=== PATIENT | female | born 1970 | race Caucasian/White ===

== ENCOUNTER 2018-11-23 18:24 | Emergency (ER) | payer OTHER ==
[2018-11-23] MEDS ORDERED: Sodium Chloride 0.9% 2.5 ML Syringe FLUSH PRN (18:33)
[2018-11-23] MEDS ORDERED: Sodium Chloride 0.9% 10 ML Syringe FLUSH PRN (18:33)
--- NOTE | 2018-11-23 19:05 | EDM.PDOC ---
ED HPI GENERAL MEDICAL PROBLEM - General Chief Complaint: Cardiovascular Problem Stated Complaint: PT HAS HIGH BLOOD PRESSURE Time Seen by Provider: 11/23/18 19:01 - History of Present Illness INITIAL COMMENTS - FREE TEXT/NARRATIVE: HISTORY AND PHYSICAL: History of present illness: The patient is a 48-year-old female was on medications for hypothyroidism , who has never been diagnosed with hypertension but says that her blood pressure over the last several months has been running on the "high side", who presents to the ED today with complaints of frontal headache then diffuse headache for the last 2 days and then nausea today which concerned her. The patient says that about 2 months ago she had an elbow injury and they told her that her blood pressure was borderline with a systolic of 140 and she did not follow-up in the clinic. She has since made an appointment with Dr. Carl at [facility] but she says that she started having a headache gradually in the frontal area and then spreading throughout her head on Wednesday and over the last 2-1/2 days it has been constant and she has not been able to even rest. She denies any recent trauma no fevers no chills no sinus issues sinus drainage chest pain shortness of breath abdominal pain. She's not had vomiting or diarrhea and no neck or back pain. She only had the nausea this evening which is what concerned her. She has only tried one dose of ibuprofen 800 mg yesterday morning and then today she took some aspirin and a half of the left over hydrocodone and it did not help so she came here for evaluation. She says that over the last 2-1/2 days she's been following her blood pressure and the systolic has been 160s. Review of systems: As per history of present illness and below otherwise all systems reviewed and negative. Past medical history: As per history of present illness and as reviewed below otherwise noncontributory. Surgical history: As per history of present illness and as reviewed below otherwise noncontributory. Social history: No reported history of drug or alcohol abuse. Family history: As per history of present illness and as reviewed below otherwise noncontributory. Physical exam: General: Well-developed well-nourished female who is nontoxic and vital signs are noted by me. HEENT: Atraumatic, normocephalic, there is no scalp tenderness sinus tenderness and no posterior neck tenderness,, negative for conjunctival pallor or scleral icterus, mucous membranes moist, throat clear, neck supple, nontender, trachea midline. There is no cervical adenopathy or nuchal rigidity Lungs: Clear to auscultation, breath sounds equal bilaterally, chest nontender. Heart: S1S2, regular rate and rhythm no overt murmurs Abdomen: Soft, nondistended, nontender. Negative for masses or hepatosplenomegaly. Negative for costovertebral tenderness. Pelvis: Stable nontender. Genitourinary: Deferred. Rectal: Deferred. Extremities: Atraumatic, negative for cords or calf pain. Neurovascular unremarkable. No pedal edema Neuro: Awake, alert, oriented. Cranial nerves II through XII unremarkable. Cerebellum unremarkable. Motor and sensory unremarkable throughout. Exam nonfocal. Diagnostics: EKG CBC CMP UA CT scan of the head urine culture Therapeutics: IV O2 monitor IV fluids Toradol Zofran Solu-Medrol I discussed with the patient that her blood pressure is not significant from an ED perspective to emergently lower it and it would need to be done more gradually by Dr. Carl in the clinic. I told her that we would investigate other causes for her headache as well as metabolic issues and attempt to help her with pain management. She states understanding. Patient says that her nausea is gone and her headache is improving but is still there. We discussed symptomatic care at home and follow-up in the clinic and she states understanding Impression: Headache with mildly elevated blood pressure improving, incidental UTI Definitive disposition and diagnosis as appropriate pending reevaluation and review of above. Head Pain Score (Numeric/FACES): 10 - Related Data Allergies Allergy/AdvReac Type Severity Reaction Status Date / Time codeine Allergy Itching Verified 11/23/18 18:26 Home Meds: Home Meds . [No Known Home Meds] 11/23/18 [History] Levothyroxine [Synthroid] 88 mcg PO ACBREAKFAST 11/23/18 [History] Past Medical History Endocrine/Metabolic History: Reports: Hypothyroidism - Infectious Disease History Infectious Disease History: Reports: Chicken Pox - Past Surgical History HEENT Surgical History: Reports: Tonsillectomy Social & Family History - Family History Family Medical History: Noncontributory - Tobacco Use Smoking Status *Q: Never Smoker Second Hand Smoke Exposure: No - Caffeine Use Caffeine Use: Reports: Coffee - Recreational Drug Use Recreational Drug Use: No ED ROS GENERAL - Review of Systems Review Of Systems: ROS reveals no pertinent complaints other than HPI. ED EXAM, GENERAL - Physical Exam Exam: See Below (See dictation) Course - Vital Signs Last Recorded V/S: Last Vital Signs Temp 36.7 C 11/23/18 18:27 Pulse 55 L 11/23/18 20:05 Resp 15 11/23/18 20:05 BP 135/81 11/23/18 20:05 Pulse Ox 99 11/23/18 20:05 - Orders/Labs/Meds Orders: Active Orders 24 hr Category Date Time Status EKG Documentation Completion [RC] STAT Care 11/23/18 18:33 Active CULTURE URINE [RM] Stat Lab 11/23/18 20:16 Ordered Sodium Chloride 0.9% [Saline Flush] Med 11/23/18 18:33 Active 10 ml FLUSH ASDIRECTED PRN Sodium Chloride 0.9% [Saline Flush] Med 11/23/18 18:33 Active 2.5 ml FLUSH ASDIRECTED PRN Saline Lock Insert [OM.PC] Stat Oth 11/23/18 18:33 Ordered Medication Orders Sodium Chloride (Saline Flush) 10 ml FLUSH ASDIRECTED PRN PRN Reason: Keep Vein Open Sodium Chloride (Saline Flush) 2.5 ml FLUSH ASDIRECTED PRN PRN Reason: Keep Vein Open Labs: Laboratory Tests 11/23/18 11/23/18 11/23/18 Range/Units 18:48 18:48 19:05 WBC 5.18 (4.0-11.0) K/uL RBC 4.25 L (4.30-5.90) M/uL Hgb 14.2 (12.0-16.0) g/dL Hct 41.3 (36.0-46.0) % MCV 97.2 (80.0-98.0) fL MCH 33.4 H (27.0-32.0) pg MCHC 34.4 (31.0-37.0) g/dL RDW Std Deviation 46.1 (28.0-62.0) fl RDW Coeff of Nasra 13 (11.0-15.0) % Plt Count 287 (150-400) K/uL MPV 10.40 (7.40-12.00) fL Neut % (Auto) 53.0 (48.0-80.0) % Lymph % (Auto) 26.3 (16.0-40.0) % [place] % (Auto) 10.6 (0.0-15.0) % Eos % (Auto) 9.7 H (0.0-7.0) % Baso % (Auto) 0.4 (0.0-1.5) % Neut # (Auto) 2.8 (1.4-5.7) K/uL Lymph # (Auto) 1.4 (0.6-2.4) K/uL [place] # (Auto) 0.6 (0.0-0.8) K/uL Eos # (Auto) 0.5 (0.0-0.7) K/uL Baso # (Auto) 0.0 (0.0-0.1) K/uL Nucleated RBC % 0.0 /100WBC Nucleated RBCs # 0 K/uL Sodium 140 (136-145) mmol/L Potassium 4.0 (3.5-5.1) mmol/L Chloride 104 (98-107) mmol/L Carbon Dioxide 26.4 (21.0-32.0) mmol/L BUN 9 (7.0-18.0) mg/dL Creatinine 0.8 (0.6-1.0) mg/dL Est Cr Clr Drug Dosing 69.59 mL/min Estimated GFR (MDRD) > 60.0 ml/min Glucose 89 (74-106) mg/dL Calcium 9.3 (8.5-10.1) mg/dL Total Bilirubin 0.4 (0.2-1.0) mg/dL AST 25 (15-37) IU/L ALT 32 (14-63) IU/L Alkaline Phosphatase 71 (46-116) U/L Total Protein 7.4 (6.4-8.2) g/dL Albumin 4.3 (3.4-5.0) g/dL Globulin 3.1 (2.6-4.0) g/dL Albumin/Globulin Ratio 1.4 (0.9-1.6) Urine Color YELLOW Urine Appearance SLT CLOUDY Urine pH 5.5 (5.0-8.0) Ur Specific [place] <= 1.005 (1.001-1.035) Urine Protein NEGATIVE (NEGATIVE) mg/dL Urine Glucose (UA) NEGATIVE (NEGATIVE) mg/dL Urine Ketones NEGATIVE (NEGATIVE) mg/dL Urine Occult Blood NEGATIVE (NEGATIVE) Urine Nitrite NEGATIVE (NEGATIVE) Urine Bilirubin NEGATIVE (NEGATIVE) Urine Urobilinogen 0.2 (<2.0) EU/dL Ur Leukocyte Esterase MODERATE H (NEGATIVE) Urine RBC 0-2 (0-2/HPF) Urine WBC 10-20 (0-5/HPF) Ur Epithelial Cells FEW (NONE-FEW) Urine Bacteria FEW (NEGATIVE) Meds: Medications Generic Name Dose Route Start Last Admin Trade Name Freq PRN Reason Stop Dose Admin Sodium Chloride 10 ml 11/23/18 18:33 Saline Flush FLUSH ASDIRECTED PRN Keep Vein Open Sodium Chloride 2.5 ml 11/23/18 18:33 Saline Flush FLUSH ASDIRECTED PRN Keep Vein Open Discontinued Medications Generic Name Dose Route Start Last Admin Trade Name Freq PRN Reason Stop Dose Admin Diphenhydramine HCl 25 mg 11/23/18 19:11 11/23/18 19:42 Benadryl IVPUSH 11/23/18 19:12 25 mg ONETIME ONE Administration Sodium Chloride 1,000 mls @ 999 mls/hr 11/23/18 19:11 11/23/18 19:37 Normal Saline IV 11/23/18 20:11 999 mls/hr STAT ONE Administration Ketorolac Tromethamine 30 mg 11/23/18 19:11 11/23/18 19:39 Toradol IVPUSH 11/23/18 19:12 30 mg ONETIME ONE Administration Methylprednisolone Sodium Succinate 125 mg 11/23/18 19:11 11/23/18 19:40 Solu-Medrol IVPUSH 11/23/18 19:12 125 mg ONETIME ONE Administration Ondansetron HCl 4 mg 11/23/18 19:11 11/23/18 19:37 Zofran IVPUSH 11/23/18 19:12 4 mg ONETIME ONE Administration Departure - Departure Time of Disposition: 20:20 Disposition: Home, Self-Care 01 Condition: Good Clinical Impression: Headache Qualifiers: Headache type: unspecified Headache chronicity pattern: unspecified pattern Intractability: not intractable Qualified Code(s): R51 - Headache Referrals: Bennett Carl MD [Primary Care Provider] - Forms: ED Department Discharge Additional Instructions: The following information is given to patients seen in the emergency department who are being discharged to home. This information is to outline your options for follow-up care. We provide all patients seen in our emergency department with a follow-up referral. The need for follow-up, as well as the timing and circumstances, are variable depending upon the specifics of your emergency department visit. If you don't have a primary care physician on staff, we will provide you with a referral. We always advise you to contact your personal physician following an emergency department visit to inform them of the circumstance of the visit and for follow-up with them and/or the need for any referrals to a consulting specialist. The emergency department will also refer you to a specialist when appropriate. This referral assures that you have the opportunity for followup care with a specialist. All of these measure are taken in an effort to provide you with optimal care, which includes your followup. Under all circumstances we always encourage you to contact your private physician who remains a resource for coordinating your care. When calling for followup care, please make the office aware that this follow-up is from your recent emergency room visit. If for any reason you are refused follow-up, please contact the [facility] emergency department at and ask to speak to the emergency department charge nurse. [address] [place] [address] Push hydration rest and use [id number] ibuprofen 600 mg every 6-8 hours and Tylenol as you choose. He'll did prescribe some tramadol that you can also try for sleep but only take when you're home as it may make you dizzy or lightheaded. Keep your appointment at [facility] with Dr. Carl and contact them tomorrow to see if you can move the appointment to an earlier time. Return to ER as needed and as discussed - My Orders Last 24 Hours: My Active Orders 11/23/18 20:16 CULTURE URINE [RM] Stat - Assessment/Plan Last 24 Hours: My Active Orders 11/23/18 20:16 CULTURE URINE [RM] Stat
[2018-11-23] MEDS ORDERED: Ketorolac 30 MG/ML SDV IVPUSH ONE (19:11)
[2018-11-23] MEDS ORDERED: methylPREDNISolone Sodium Succinate 125 MG/2 ML SDV IVPUSH ONE (19:11)
[2018-11-23] MEDS ORDERED: diphenhydrAMINE 50 MG/ML SDV IVPUSH ONE (19:11)
[2018-11-23] MEDS ORDERED: Ondansetron 4 MG/2 ML SDV IVPUSH ONE (19:11)
[2018-11-23] MEDS ORDERED: Sodium Chloride 0.9% 1,000 ML IV ONE (19:11)
[2018-11-23 19:25] LABS: CHLORIDE,CL 104 mmol/L (98-107); SODIUM,NA 140 mmol/L (136-145)
--- NOTE | 2018-11-23 19:58 | CT ---
INDICATION: Headache. Hypertension. COMPARISON: None available. TECHNIQUE: CT examination of the head was performed with 3 mm thick axial sections without intravenous contrast. Images were obtained from the vertex of the skull through the skull base, and I examined the images with the brain and bone windows. Please note that all CT scans at this facility use dose modulation, iterative reconstruction, and/or weight-based dosing when appropriate to reduce radiation dose to as low as reasonably achievable. FINDINGS: : The brain is normal in appearance for the patient`s age on today`s study, with no sign of mass lesion, mass effect, hemorrhage, or edema. The ventricles and sulci are normal in appearance for the patient`s age. The visualized portions of the orbits are normal in appearance. The visualized portions of the paranasal sinuses and mastoids are clear. The osseous structures are normal in their appearance with no sign of abnormality in the skull base or calvarium. IMPRESSION: Normal noncontrast CT of the head for the patient`s age. Nothing seen to correlate with history of headache. Please note that all CT scans at this facility use dose modulation, iterative reconstruction, and/or weight-based dosing when appropriate to reduce radiation dose to as low as reasonably achievable. Dictated by Jama Avila MD @ Nov 23 2018 7:53PM Signed by Dr. Jama Avila @ Nov 23 2018 7:56PM
== END 2018-11-23 20:36 | disposition home or self-care (01) ==
LOC: MW.ED 18:24
DX: R51 Headache (principal); R03.0 Elevated blood-pressure reading, without diagnosis of hypertension; N39.0 Urinary tract infection, site not specified; E03.9 Hypothyroidism, unspecified; Z88.5 Allergy status to narcotic agent; Z79.890 Hormone replacement therapy
CPT/HCPCS: 70450; 80053; 81001; 85025; 87086; 93005; 96361; 96374; 96375; 99284; J1200; J1885; J2405; J2930; J7040

== ENCOUNTER 2020-06-12 13:07 | Emergency (ER) | payer OTHER ==
--- NOTE | 2020-06-12 14:00 | EDM.PDOC ---
ED HPI GENERAL MEDICAL PROBLEM - General Chief Complaint: Abdominal Pain Stated Complaint: STOMACH PAIN, BLOOD IN STOOL Time Seen by Provider: 06/12/20 13:55 Source of Information: Reports: Patient History Limitations: Reports: No Limitations - History of Present Illness INITIAL COMMENTS - FREE TEXT/NARRATIVE: 49-year-old female with history of celiac disease presents with abdominal pain this morning. Abdominal pain is described as aching sensation rated 4/10, periumbilical, waxes and wanes since this morning, accommodated by 3 episodes of mucus she stool with bright red blood and specks of melena. She denies feeling lightheaded, dizziness, fever, chills, nausea, vomiting, chest pain, shortness of breath. ROS: A 10-point review of systems, other than pertinent positives and negatives as stated per HPI, is otherwise negative Past medical history: No additional pertinent history Past Surgical history: No additional pertinent history Social history: No additional pertinent history Family history: No additional pertinent history PHYSICAL EXAM General: AOx4, GCS = 15, No distress HEENT: dry mucous membrane Neck: supple, no meningismus, no Kernig or Brudzinski Cardiac: S1S2 RRR Respiratory: CTAB, no crackles or rales, no wheezing Abdomen: Soft, nontender, no rebound or guarding, nondistended, no pulsatile mass. Back: nontender Musculoskeletal: NVI distally, no deformity Neuro: No focal deficits, CN 2 - 12 WNL. gut Pain Score (Numeric/FACES): 4 - Related Data Allergies Allergy/AdvReac Type Severity Reaction Status Date / Time codeine Allergy Itching Verified 06/12/20 14:03 Home Meds: Home Meds Levothyroxine [Synthroid] 100 mcg PO ACBREAKFAST 11/23/18 [History] Dicyclomine [Bentyl] 10 mg PO QIDACANDBED #12 cap 06/12/20 [Rx] Omeprazole Magnesium [Prilosec Otc] 20 mg PO BID #30 tablet.dr 06/12/20 [Rx] estradioL [Estradiol] 1 mg PO DAILY 06/12/20 [History] Past Medical History Endocrine/Metabolic History: Reports: Hypothyroidism - Infectious Disease History Infectious Disease History: Reports: Chicken Pox - Past Surgical History HEENT Surgical History: Reports: Tonsillectomy Social & Family History - Family History Family Medical History: No Pertinent Family History - Caffeine Use Caffeine Use: Reports: Coffee ED ROS GENERAL - Review of Systems Review Of Systems: See Below (see dictation) ED EXAM, GENERAL - Physical Exam Exam: See Below (see dictation) Course - Vital Signs Last Recorded V/S: Last Vital Signs Temp 97.5 F 06/12/20 14:00 Pulse 66 06/12/20 14:00 Resp 16 06/12/20 14:00 BP 155/102 H 06/12/20 14:00 Pulse Ox 98 06/12/20 14:00 - Orders/Labs/Meds Labs: Laboratory Tests 06/12/20 06/12/20 06/12/20 Range/Units 14:17 14:24 14:24 WBC 5.86 (4.0-11.0) K/uL RBC 4.14 L (4.30-5.90) M/uL Hgb 13.5 (12.0-16.0) g/dL Hct 40.3 (36.0-46.0) % MCV 97.3 (80.0-98.0) fL MCH 32.6 H (27.0-32.0) pg MCHC 33.5 (31.0-37.0) g/dL RDW Std Deviation 44.2 (28.0-62.0) fl RDW Coeff of Nasra 13 (11.0-15.0) % Plt Count 281 (150-400) K/uL MPV 10.40 (7.40-12.00) fL Neut % (Auto) 72.2 (48.0-80.0) % Lymph % (Auto) 20.1 (16.0-40.0) % [place] % (Auto) 5.8 (0.0-15.0) % Eos % (Auto) 1.4 (0.0-7.0) % Baso % (Auto) 0.5 (0.0-1.5) % Neut # (Auto) 4.2 (1.4-5.7) K/uL Lymph # (Auto) 1.2 (0.6-2.4) K/uL [place] # (Auto) 0.3 (0.0-0.8) K/uL Eos # (Auto) 0.1 (0.0-0.7) K/uL Baso # (Auto) 0.0 (0.0-0.1) K/uL Nucleated RBC % 0.0 /100WBC Nucleated RBCs # 0 K/uL INR APTT (18.6-31.3) SEC Lactate (0.20-2.00) mmol/L Sodium 138 (136-145) mmol/L Potassium 4.2 (3.5-5.1) mmol/L Chloride 101 (98-107) mmol/L Carbon Dioxide 26.9 (21.0-32.0) mmol/L BUN 11 (7.0-18.0) mg/dL Creatinine 0.8 (0.6-1.0) mg/dL Est Cr Clr Drug Dosing 65.80 mL/min Estimated GFR (MDRD) > 60.0 ml/min Glucose 89 (74-106) mg/dL Calcium 8.6 (8.5-10.1) mg/dL Total Bilirubin 0.3 (0.2-1.0) mg/dL AST 27 (15-37) IU/L ALT 33 (14-63) IU/L Alkaline Phosphatase 63 (46-116) U/L Total Protein 7.1 (6.4-8.2) g/dL Albumin 3.8 (3.4-5.0) g/dL Globulin 3.3 (2.6-4.0) g/dL Albumin/Globulin Ratio 1.2 (0.9-1.6) Lipase 123 (73-393) U/L HCG, Qual (NEG) Urine Color YELLOW Urine Appearance CLEAR Urine pH 7.0 (5.0-8.0) Ur Specific [place] 1.010 (1.001-1.035) Urine Protein NEGATIVE (NEGATIVE) mg/dL Urine Glucose (UA) NEGATIVE (NEGATIVE) mg/dL Urine Ketones NEGATIVE (NEGATIVE) mg/dL Urine Occult Blood NEGATIVE (NEGATIVE) Urine Nitrite NEGATIVE (NEGATIVE) Urine Bilirubin NEGATIVE (NEGATIVE) Urine Urobilinogen 0.2 (<2.0) EU/dL Ur Leukocyte Esterase NEGATIVE (NEGATIVE) 06/12/20 06/12/20 06/12/20 Range/Units 14:24 14:24 14:24 WBC (4.0-11.0) K/uL RBC (4.30-5.90) M/uL Hgb (12.0-16.0) g/dL Hct (36.0-46.0) % MCV (80.0-98.0) fL MCH (27.0-32.0) pg MCHC (31.0-37.0) g/dL RDW Std Deviation (28.0-62.0) fl RDW Coeff of [place] (11.0-15.0) % Plt Count (150-400) K/uL MPV (7.40-12.00) fL Neut % (Auto) (48.0-80.0) % Lymph % (Auto) (16.0-40.0) % [place] % (Auto) (0.0-15.0) % Eos % (Auto) (0.0-7.0) % Baso % (Auto) (0.0-1.5) % Neut # (Auto) (1.4-5.7) K/uL Lymph # (Auto) (0.6-2.4) K/uL [place] # (Auto) (0.0-0.8) K/uL Eos # (Auto) (0.0-0.7) K/uL Baso # (Auto) (0.0-0.1) K/uL Nucleated RBC % /100WBC Nucleated RBCs # K/uL INR 0.97 APTT 22.4 (18.6-31.3) SEC Lactate 0.5 (0.20-2.00) mmol/L Sodium (136-145) mmol/L Potassium (3.5-5.1) mmol/L Chloride (98-107) mmol/L Carbon Dioxide (21.0-32.0) mmol/L BUN (7.0-18.0) mg/dL Creatinine (0.6-1.0) mg/dL Est Cr Clr Drug Dosing mL/min Estimated GFR (MDRD) ml/min Glucose (74-106) mg/dL Calcium (8.5-10.1) mg/dL Total Bilirubin (0.2-1.0) mg/dL AST (15-37) IU/L ALT (14-63) IU/L Alkaline Phosphatase (46-116) U/L Total Protein (6.4-8.2) g/dL Albumin (3.4-5.0) g/dL Globulin (2.6-4.0) g/dL Albumin/Globulin Ratio (0.9-1.6) Lipase (73-393) U/L HCG, Qual NEGATIVE (NEG) Urine Color Urine Appearance Urine pH (5.0-8.0) Ur Specific [place] (1.001-1.035) Urine Protein (NEGATIVE) mg/dL Urine Glucose (UA) (NEGATIVE) mg/dL Urine Ketones (NEGATIVE) mg/dL Urine Occult Blood (NEGATIVE) Urine Nitrite (NEGATIVE) Urine Bilirubin (NEGATIVE) Urine Urobilinogen (<2.0) EU/dL Ur Leukocyte Esterase (NEGATIVE) Meds: Medications Discontinued Medications Generic Name Dose Route Start Last Admin Trade Name Freq PRN Reason Stop Dose Admin Dicyclomine HCl 10 mg 06/12/20 14:12 06/12/20 14:20 Bentyl PO 06/12/20 14:13 10 mg ONETIME ONE Administration - Re-Assessments/Exams Free Text/Narrative Re-Assessment/Exam: 06/12/20 16:[address] Gallegos, who is happy to see her in the office. 06/12/20 16:32 She is currently stable for discharge. I performed a repeat exam and did not appreciate new abnormal findings. Patient exhibits normal vital signs and has a normal gait on road test. I advised the patient to return to the ER for reevaluation if symptoms worsened, including fever, worsening pain, or any other worrisome symptoms. I instructed the patient to follow up with Dr. Gallegos within 2-3 days. MEDICAL DECISION MAKING: I reviewed the patients past medical records, lab and radiographic findings. I discussed the case with the patient. My differential diagnosis included: Celiac disease, diverticulosis, obstruction, GI bleed. Patient is hemodynamically stable, not tachycardic or hypotensive, she had no pale conjunctiva, her hemoglobin is stable, no suspicion for need for blood transfusion. CT abdomen pelvis did not reveal any underlying abnormalities needing admission work-up. She is stable for outpatient follow-up with Dr. Gallegos for colonoscopy Departure - Departure Time of Disposition: 16:28 Disposition: Home, Self-Care 01 Condition: Good Clinical Impression: Abdominal pain, GI bleed - Discharge Information *PRESCRIPTION DRUG MONITORING PROGRAM REVIEWED*: Not Applicable *COPY OF PRESCRIPTION DRUG MONITORING REPORT IN PATIENT ALY: Not Applicable Prescriptions: Dicyclomine [Bentyl] 10 mg PO QIDACANDBED #12 cap Omeprazole Magnesium [Prilosec Otc] 20 mg PO BID #30 tablet. Instructions: Gastrointestinal Bleeding, Abdominal Pain, Adult, [id number] Referrals: Bennett Carl MD [Primary Care Provider] - 1 Week Shana Gallegos MD [Physician] - 3 Days Forms: ED Department Discharge Additional Instructions: The need for follow-up, as well as the timing and circumstances, are variable depending upon the specifics of your emergency department visit. If you don't have a primary care physician on staff, we will provide you with a referral. We always advise you to contact your personal physician following an emergency department visit to inform them of the circumstance of the visit and for follow-up with them and/or the need for any referrals to a consulting specialist. The emergency department will also refer you to a specialist when appropriate. This referral assures that you have the opportunity for follow-up care with a specialist. All of these measure are taken in an effort to provide you with optimal care, which includes your follow-up. Under all circumstances we always encourage you to contact your private physician who remains a resource for coordinating your care. When calling for follow-up care, please make the office aware that this follow-up is from your recent emergency room visit. If for any reason you are refused follow-up, please contact the Emergency Department at and asked to speak to the emergency department charge nurse. If you do not have a primary care doctor, please follow up with the clinics below within 3-5 days. [facility] [address] [place] [id number] [facility] [address] [place] [id number] Sepsis Event Note (ED) - Focused Exam Vital Signs: Vital Signs Temp Pulse Resp BP Pulse Ox 06/12/20 14:00 97.5 F 66 16 155/102 H 98
[2020-06-12] MEDS ORDERED: Dicyclomine 10 MG Cap PO ONE (14:12)
[2020-06-12 15:09] LABS: BLOOD UREA NITROGEN,BUN 11 mg/dL (7.0-18.0); CARBON DIOXIDE,CO2 26.9 mmol/L (21.0-32.0); CHLORIDE,CL 101 mmol/L (98-107); GLUCOSE RANDOM 89 mg/dL (74-106); LIPASE 123 U/L (73-393); POTASSIUM,K 4.2 mmol/L (3.5-5.1); SODIUM,NA 138 mmol/L (136-145)
--- NOTE | 2020-06-12 16:04 | CT ---
INDICATION: Abdominal pain; bright red blood per rectum; history of celiac disease. COMPARISON: None. TECHNIQUE: CT abdomen and pelvis without intravenous or oral contrast; coronal and sagittal reformats. FINDINGS: Calcified granulomas lower lobe right lung. No abnormal intra pulmonary nodular densities are identified. No evidence of pleural effusion. Normal size cardiac silhouette without any evidence of pericardial effusion. No focal hepatic or splenic pathology. No pancreatic pathology. Gallbladder is unremarkable. No adrenal pathology. Fullness of the renal collecting system bilaterally without any kidney stones or obstructive uropathy. No evidence of ureteral calculi on either side. Normal appendix. Diverticulosis sigmoid colon without any CT evidence of diverticulitis or abscess. Status post hysterectomy. Distended urinary bladder. IMPRESSION: 1. Prominent renal collecting system and renal pelves bilateral; if kidney stones is a strong clinical consideration, suggest CT urography. 2. Mild to moderate distention of the urinary bladder. 3. Normal appendix. 4. Negative CT abdomen and pelvis without intravenous or oral contrast otherwise. Please note that all CT scans at this facility use dose modulation, iterative reconstruction, and/or weight-based dosing when appropriate to reduce radiation dose to as low as reasonably achievable. Dictated by Win Riddle MD @ Jun 12 2020 3:55PM Signed by Dr. Win Riddle @ Jun 12 2020 4:02PM
== END 2020-06-12 17:03 | disposition home or self-care (01) ==
LOC: MW.ED 13:07
DX: K92.2 Gastrointestinal hemorrhage, unspecified (principal); E03.9 Hypothyroidism, unspecified; Z88.5 Allergy status to narcotic agent; Z79.899 Other long term (current) drug therapy
CPT/HCPCS: 36415; 74176; 80053; 81003; 83605; 83690; 84703; 85025; 85610; 85730; 99284; A9270

== ENCOUNTER 2020-07-09 08:54 | Day surgery (SDC) | payer OTHER ==
[~2020-07-09 08:54] MED LIST: Lactated Ringers 1,000 ML IV SCH; Sodium Chloride 0.9% 10 ML SDV IV PRN; Sodium Chloride 0.9% 10 ML Syringe FLUSH PRN; Sodium Chloride 0.9% 2.5 ML Syringe FLUSH PRN
[2020-07-09] MEDS ORDERED: fentaNYL 100 MCG/2 ML SDV ONE (09:14)
[2020-07-09] MEDS ORDERED: Propofol 200 MG/20 ML SDV ONE ×2 (09:14→10:16)
--- NOTE | 2020-07-09 09:18 | PCM.PREANE ---
Preanesthetic Assessment - Anesthesia/Transfusion/Family Hx Anesthesia History: Prior Anesthesia Without Reaction Family History of Anesthesia Reaction: No Transfusion History: No Prior Transfusion(s) - Review of Systems General: No Symptoms Pulmonary: No Symptoms Cardiovascular: No Symptoms, Other (borderline htn) Gastrointestinal: No Symptoms Neurological: No Symptoms Other: Reports: None - Physical Assessment NPO Status Date: 07/09/20 NPO Status Time: 00:05 Vital Signs: Last Vital Signs Temp 97.2 F 07/09/20 09:00 Pulse 77 07/09/20 09:00 Resp 15 07/09/20 09:00 BP 151/109 H 07/09/20 09:05 Pulse Ox 97 07/09/20 09:00 Height: 5 ft 3 in Weight: 134 lb ASA Class: 2 Mental Status: Alert & Oriented x3 Dentition: Reports: Normal Dentition, Implants (upper implant) ROM/Head Extension: Full Lungs: Clear to Auscultation, Normal Respiratory Effort Cardiovascular: Regular Rate, Regular Rhythm - Allergies Allergies/Adverse Reactions: Allergies Allergy/AdvReac Type Severity Reaction Status Date / Time codeine Allergy Itching Verified 07/03/20 08:16 - Acknowledgements Anesthesia Type Planned: General Anesthesia, MAC Pt an Appropriate Candidate for the Planned Anesthesia: Yes Alternatives and Risks of Anesthesia Discussed w Pt/Guardian: Yes Pt/Guardian Understands and Agrees with Anesthesia Plan: Yes PreAnesthesia Questionnaire HEENT History: Reports: Other (See Below) Other HEENT History: wears glasses/contacts, has dental implants Cardiovascular History: Reports: None Respiratory History: Reports: None Gastrointestinal History: Reports: Celiac Disease Other Gastrointestinal History: occasional heartburn Genitourinary History: Reports: None Musculoskeletal History: Reports: None Neurological History: Reports: None Psychiatric History: Reports: None Endocrine/Metabolic History: Reports: Hypothyroidism Hematologic History: Reports: None Immunologic History: Reports: None Oncologic (Cancer) History: Reports: None Dermatologic History: Reports: None - Infectious Disease History Infectious Disease History: Reports: Chicken Pox, Novel Coronavirus - Past Surgical History Head Surgeries/Procedures: Reports: None HEENT Surgical History: Reports: Tonsillectomy Cardiovascular Surgical History: Reports: None Respiratory Surgical History: Reports: None GI Surgical History: Reports: Colonoscopy Female Surgical History: Reports: Breast Reduction, Hysterectomy Endocrine Surgical History: Reports: None Neurological Surgical History: Reports: None Musculoskeletal Surgical History: Reports: Shoulder Surgery Other Musculoskeletal Surgeries/Procedures:: right shoulder arthroscopy Oncologic Surgical History: Reports: None Dermatological Surgical History: Reports: Plastic Surgical Reconstruction/Repair - SUBSTANCE USE Tobacco Use Status *Q: Light Tobacco User Tobacco Use Within Last Twelve Months: Vaping - HOME MEDS Home Medications: Home Meds Levothyroxine [Synthroid] 100 mcg PO ACBREAKFAST 11/23/18 [History] estradioL [Estradiol] 1 mg PO DAILY 06/12/20 [History] - CURRENT (IN HOUSE) MEDS Current Meds: Current Medications Lactated Ringer's (Ringers, Lactated) 1,000 mls @ 125 mls/hr IV ASDIRECTED HO Sodium Chloride (Sodium Chloride 0.9% 10 Ml Syringe) 10 ml FLUSH ASDIRECTED PRN PRN Reason: Keep Vein Open Sodium Chloride (Sodium Chloride 0.9% 2.5 Ml Syringe) 2.5 ml FLUSH ASDIRECTED PRN PRN Reason: Keep Vein Open Sodium Chloride (Sodium Chloride 0.9% 10 Ml Syringe) 10 ml FLUSH ASDIRECTED PRN PRN Reason: Keep Vein Open Sodium Chloride (Sodium Chloride 0.9% 2.5 Ml Syringe) 2.5 ml FLUSH ASDIRECTED PRN PRN Reason: Keep Vein Open Sodium Chloride (Sodium Chloride 0.9% 10 Ml Sdv) 10 ml IV ASDIRECTED PRN PRN Reason: IV Use
--- NOTE | 2020-07-09 10:30 | PCM.OPNOTE ---
- General Post-Op/Procedure Note Date of Surgery/Procedure: 07/09/20 Operative Procedure(s): Diagnostic EGD and colonoscopy Findings: Duodenitis, no ulceration seen. Normal colonoscopy Pre Op Diagnosis: History of celiac disease, change in bowel habits Post-Op Diagnosis: Duodenitis Anesthesia Technique: PRESTON Primary Surgeon: Shana Gallegos Condition: Good
--- NOTE | 2020-07-09 10:53 | PCM.POSTAN ---
POST ANESTHESIA ASSESSMENT - VITAL SIGNS Vital Signs: Last Vital Signs Temp 97.3 F 07/09/20 10:42 Pulse 57 L 07/09/20 10:42 Resp 14 07/09/20 10:42 BP 156/92 H 07/09/20 10:42 Pulse Ox 100 07/09/20 10:42
--- NOTE | 2020-07-09 10:57 | PCM48HPAN ---
Post Anesthesia Note - EVALUATION WITHIN 48HRS OF ANESTHETIC Patient Participated in Evaluation: Yes Respiratory Function Stable: Yes Airway Patent: Yes Cardiovascular Function Stable: Yes Hydration Status Stable: Yes Pain Control Satisfactory: Yes Nausea and Vomiting Control Satisfactory: Yes Mental Status Recovered: Yes Vital Signs: Last Vital Signs Temp 97.3 F 07/09/20 10:42 Pulse 57 L 07/09/20 10:42 Resp 14 07/09/20 10:42 BP 156/92 H 07/09/20 10:42 Pulse Ox 100 07/09/20 10:42 - COMMENTS/OBSERVATIONS Free Text/Narrative:: no anesthetci complications
--- NOTE | 2020-07-09 20:55 | OR ---
SURGEON: SHANA GALLEGOS MD DATE OF PROCEDURE: 07/09/2020 PREOPERATIVE DIAGNOSIS: Change in bowel habits, history of celiac disease. POSTOPERATIVE DIAGNOSES: 1. Hiatal hernia. 2. Duodenitis. 3. Normal colonoscopy. PROCEDURE PERFORMED: Diagnostic esophagogastroduodenoscopy and colonoscopy. PRIMARY SURGEON: Shana Gallegos MD ANESTHESIA: MAC. INSTRUMENTS USED: Olympus endoscope and colonoscope. EXTENT OF EXAM: To the second portion of duodenum, to the cecum. PREPARATION: Good. LIMITATIONS: None. INDICATIONS FOR EXAMINATION: The patient is a 49-year-old female who presented to my clinic with an acute change in her bowel habits associated with diarrhea. She has a history of celiac disease and admits to not being compliant with a gluten-free diet. The patient and I discussed the need for diagnostic EGD and colonoscopy. I explained the procedure, expected perioperative course, and the risks. She verbalized understanding and wishes to proceed. PROCEDURE IN DETAIL: The patient was brought in to the endoscopy suite and placed in a left lateral decubitus position. A time-out was completed verifying the patient's name, age, date of , allergies, and procedure to be performed. A bite block was placed in the patient's mouth. Monitored anesthesia care was induced and continuous oxygen was provided via face mask throughout the procedure. After adequate sedation was achieved, a well-lubricated endoscope was placed in the patient's mouth and advanced under direct visualization to the second portion of duodenum. This appeared normal and a photograph was taken. The scope was then straightened out and fully withdrawn while examining the color, texture, anatomy, and integrity of mucosa of the upper GI tract. The patient was noted to have pale-appearing mucosa in the second portion of duodenum. In the first portion of duodenum, there was nodularity, flattening of the villi, and signs of chronic inflammation. This was likely consistent with celiac disease. Multiple biopsies were taken of the duodenal bulb and sent to Pathology, labeled as duodenum. The scope was then brought to the stomach. A photograph was taken of the GE junction as well as the pylorus. The patient was noted to have a small hiatal hernia. Biopsies were taken of the gastric antrum, body, and fundus and sent for histologic review and H pylori testing. There was no evidence of gross ulceration or inflammation in the stomach lining. The scope was then brought into the distal esophagus. A photograph was taken of the very small hiatal hernia. A biopsy was taken just above the Z-line and a biopsy taken a centimeter above that and sent to Pathology, labeled as esophageal biopsy 1 and 2. The Z-line did not grossly appear abnormal. The remainder of the esophagus was normal and the scope was removed. I then began the colonoscopy portion of the case. A digital rectal exam was performed. This exam was within normal limits. A well-lubricated colonoscope was inserted in the rectum and advanced under direct visualization to the level of the cecum. The cecum was identified by both visual and anatomic landmarks. A photograph was taken of the cecal cap. However, I was unable to retroflex the scope within the cecum due to looping of the scope more proximally. The scope was fully withdrawn while examining the color, texture, anatomy, and integrity of mucosa from the cecum to the anal canal. I was able to get a good look at the terminal ileum. This did not appear inflamed. The colonic mucosa appeared pink and healthy. I saw no evidence of any acute pathology. The scope was brought into the rectum and retroflexed to allow visualization of the anal canal opening. This appeared normal and a photograph was taken. The scope was straightened out and fully withdrawn. Cecum to anus time was 9 minutes. The patient tolerated the procedure well and was transferred to the PACU in stable condition. ENDOSCOPIC DIAGNOSES: 1. Hiatal hernia. 2. Duodenitis. 3. Normal colonoscopy. RECOMMENDATIONS: I informed the patient of my findings. She will try to stick to a gluten-free diet for now. We will follow up on the biopsy results and determine any further steps in treatment from there in clinic in two weeks. CHRISTIANO BRANHAM /[id number]
== END 2020-07-09 11:05 | disposition home or self-care (01) ==
LOC: MW.SDS 08:54
PROVIDERS: ATTEND Surgery
DX: K92.1 Melena (principal); K29.80 Duodenitis without bleeding; K20.90 Esophagitis, unspecified without bleeding; K44.9 Diaphragmatic hernia without obstruction or gangrene; E03.9 Hypothyroidism, unspecified; Z87.19 Personal history of other diseases of the digestive system; Z88.5 Allergy status to narcotic agent; Z98.890 Other specified postprocedural states
CPT/HCPCS: 43239; 45378; J2704; J3010; J7120; 88305; 88312

== ENCOUNTER 2020-10-05 22:53 | Emergency (ER) | payer OTHER ==
[2020-10-05] MEDS ORDERED: LORazepam 2 MG/ML SDV IVPUSH ONE (23:01)
--- NOTE | 2020-10-05 23:03 | EDM.PDOC ---
ED HPI GENERAL MEDICAL PROBLEM - General Chief Complaint: Drug or Alcohol Abuse Stated Complaint: SEIZURE Time Seen by Provider: 10/05/20 22:56 Source of Information: Reports: Patient History Limitations: Reports: No Limitations, Intoxication - History of Present Illness INITIAL COMMENTS - FREE TEXT/NARRATIVE: Patient is a 50-year-old female was brought in by EMS for EtOH. Patient was at home drinking when she fell the hamate onto her back. Her states that he thought she may have had a seizure EMS states that it could have been abscesses the patient is a set there in a blank stare not shaking. Here in the ED also patient was in the bed and to Use bathroom she to have shaking of her arm but she seems to be still awake so unclear if patient is actually having s eizures or what is happening. Patient currently has no complaints but does seem intoxicated on exam. - Related Data Allergies Allergy/AdvReac Type Severity Reaction Status Date / Time codeine Allergy Itching Verified 07/03/20 08:16 Home Meds: Home Meds Levothyroxine [Synthroid] 100 mcg PO ACBREAKFAST 11/23/18 [History] estradioL [Estradiol] 1 mg PO DAILY 06/12/20 [History] Past Medical History HEENT History: Reports: Other (See Below) Other HEENT History: wears glasses/contacts, has dental implants Cardiovascular History: Reports: None Respiratory History: Reports: None Gastrointestinal History: Reports: Celiac Disease, Diverticulosis Other Gastrointestinal History: occasional heartburn Genitourinary History: Reports: None Musculoskeletal History: Reports: None Neurological History: Reports: None Psychiatric History: Reports: None Endocrine/Metabolic History: Reports: Hypothyroidism Hematologic History: Reports: None Immunologic History: Reports: None Oncologic (Cancer) History: Reports: None Dermatologic History: Reports: None - Infectious Disease History Infectious Disease History: Reports: Chicken Pox, Novel Coronavirus - Past Surgical History Head Surgeries/Procedures: Reports: None HEENT Surgical History: Reports: Tonsillectomy Cardiovascular Surgical History: Reports: None Respiratory Surgical History: Reports: None GI Surgical History: Reports: Colonoscopy Female Surgical History: Reports: Breast Reduction, Hysterectomy Endocrine Surgical History: Reports: None Neurological Surgical History: Reports: None Musculoskeletal Surgical History: Reports: Shoulder Surgery Other Musculoskeletal Surgeries/Procedures:: right shoulder arthroscopy Oncologic Surgical History: Reports: None Dermatological Surgical History: Reports: Plastic Surgical Reconstruction/Repair Social & Family History - Family History Family Medical History: No Pertinent Family History - Caffeine Use Caffeine Use: Reports: None ED ROS GENERAL - Review of Systems Review Of Systems: Unable To Obtain Reason Not Obtained: etoh use ED EXAM, HEAD INJURY - Physical Exam Exam: See Below Exam Limited By: Intoxication General Appearance: No Apparent Distress Head: Scalp Hematoma Eyes: Bilateral Eye: EOMI, PERRL Neck: Non-Tender, Full Range of Motion Respiratory: No Respiratory Distress, Lungs Clear, Normal Breath Sounds Cardiovascular: Normal Peripheral Pulses, Regular Rate, Rhythm GI/Abdominal Exam: Normal Bowel Sounds, Soft, Non-Tender Extremities: Normal Inspection Neurologic: Alert, Oriented x 3 - [place] Coma Score Best Eye Response ([place]): (4) Open Spontaneously Best Verbal Response ([place]): (5) Oriented Best Motor Response ([place]): (6) Obeys Commands Course - Vital Signs Last Recorded V/S: Last Vital Signs Temp 97 F 10/05/20 23:02 Pulse 83 10/06/20 01:12 Resp 12 10/06/20 01:12 BP 90/67 10/06/20 01:12 Pulse Ox 94 L 10/06/20 01:12 - Orders/Labs/Meds Orders: Active Orders 24 hr Category Date Time Status Sodium Chloride 0.9% [Normal Saline] 1,000 ml Med 10/06/20 00:51 Active IV .Bolus Medication Orders Sodium Chloride (Normal Saline) 1,000 mls @ 999 mls/hr IV .Bolus ONE Stop: 10/06/20 01:51 Last Admin: 10/06/20 00:51 Dose: 999 mls/hr Documented by: KEON Labs: Laboratory Tests 10/05/20 10/05/20 Range/Units 23:15 23:15 WBC 4.64 (4.0-11.0) K/uL RBC 4.04 L (4.30-5.90) M/uL Hgb 13.6 (12.0-16.0) g/dL Hct 39.0 (36.0-46.0) % MCV 96.5 (80.0-98.0) fL MCH 33.7 H (27.0-32.0) pg MCHC 34.9 (31.0-37.0) g/dL RDW Std Deviation 40.3 (28.0-62.0) fl RDW Coeff of Nasra 12 (11.0-15.0) % Plt Count 284 (150-400) K/uL MPV 10.00 (7.40-12.00) fL Neut % (Auto) 52.6 (48.0-80.0) % Lymph % (Auto) 34.3 (16.0-40.0) % Baker % (Auto) 8.6 (0.0-15.0) % Eos % (Auto) 3.9 (0.0-7.0) % Baso % (Auto) 0.6 (0.0-1.5) % Neut # (Auto) 2.4 (1.4-5.7) K/uL Lymph # (Auto) 1.6 (0.6-2.4) K/uL Baker # (Auto) 0.4 (0.0-0.8) K/uL Eos # (Auto) 0.2 (0.0-0.7) K/uL Baso # (Auto) 0.0 (0.0-0.1) K/uL Sodium 142 (136-145) mmol/L Potassium 3.9 (3.5-5.1) mmol/L Chloride 106 (98-107) mmol/L Carbon Dioxide 25.3 (21.0-32.0) mmol/L BUN 10 (7.0-18.0) mg/dL Creatinine 0.7 (0.6-1.0) mg/dL Est Cr Clr Drug Dosing TNP Estimated GFR (MDRD) > 60.0 ml/min Glucose 86 (74-106) mg/dL Calcium 8.4 L (8.5-10.1) mg/dL Phosphorus 3.4 (2.6-4.7) mg/dL Magnesium 2.2 (1.8-2.4) mg/dL Total Bilirubin 0.3 (0.2-1.0) mg/dL AST 32 (15-37) IU/L ALT 29 (14-63) IU/L Alkaline Phosphatase 62 (46-116) U/L Creatine Kinase 104 (26-308) U/L Total Protein 7.4 (6.4-8.2) g/dL Albumin 3.9 (3.4-5.0) g/dL Globulin 3.5 (2.6-4.0) g/dL Albumin/Globulin Ratio 1.1 (0.9-1.6) Lipase 139 (73-393) U/L Ethyl Alcohol 265 mg/dL Meds: Medications Generic Name Dose Route Start Last Admin Trade Name Rico PRN Reason Stop Dose Admin Sodium Chloride 1,000 mls @ 999 mls/hr 10/06/20 00:51 10/06/20 00:51 Normal Saline IV 10/06/20 01:51 999 mls/hr .Bolus ONE Administration Discontinued Medications Generic Name Dose Route Start Last Admin Trade Name Rico PRN Reason Stop Dose Admin Lorazepam 2 mg 10/05/20 23:01 10/05/20 23:09 Lorazepam 2 Mg/Ml Sdv IVPUSH 10/05/20 23:02 2 mg ONETIME ONE Administration - Re-Assessments/Exams Free Text/Narrative Re-Assessment/Exam: 10/06/20 01:25 Patient was presented today for EtOH. We did CT scans of head and C-spine are both negative. Patient has friends at bedside and patient alcohol was greater than 200 however she is up awake and walking and has someone that can safely take her home. Patient will be discharged in the custody of her friend. Departure - Departure Time of Disposition: :26 Disposition: Home, Self-Care 01 Condition: Good Clinical Impression: Alcohol intoxication - Discharge Information *PRESCRIPTION DRUG MONITORING PROGRAM REVIEWED*: Not Applicable *COPY OF PRESCRIPTION DRUG MONITORING REPORT IN PATIENT ALY: Not Applicable Instructions: Alcohol Intoxication, [id number] Referrals: PCP,None [Primary Care Provider] - Forms: ED Department Discharge Additional Instructions: The following information is given to patients seen in the emergency department who are being discharged to home. This information is to outline your options for follow-up care. We provide all patients seen in our emergency department with a follow-up referral. The need for follow-up, as well as the timing and circumstances, are variable depending upon the specifics of your emergency department visit. If you don't have a primary care physician on staff, we will provide you with a referral. We always advise you to contact your personal physician following an emergency department visit to inform them of the circumstance of the visit and for follow-up with them and/or the need for any referrals to a consulting specialist. The emergency department will also refer you to a specialist when appropriate. This referral assures that you have the opportunity for follow-up care with a specialist. All of these measure are taken in an effort to provide you with optimal care, which includes your follow-up. Under all circumstances we always encourage you to contact your private physician who remains a resource for coordinating your care. When calling for follow-up care, please make the office aware that this follow-up is from your recent emergency room visit. If for any reason you are refused follow-up, please contact the [facility] Emergency Department at and asked to speak to the emergency department charge nurse. Please follow up with your primary care physician. If you do not have a primary care physician, see below: [facility] [address] [place] [id number] [facility] [address] [place] [address] [facility] - Neurology Professional Building [address], [address] [place] [address] You were seen today after you fell and possibly shed. You came in and you are also intoxicated. There was some concern that you may have had a seizure. Episodes we saw here you were shaking which her left arm which you were still speaking was does not really fit with a seizure years. We still recommend that you limit your driving and do not take any baths or swim alone or climbing any ladders until you are seen by a neurologist. But we have a test number that you can follow-up with. Sepsis Event Note (ED) - Focused Exam Vital Signs: Vital Signs Temp Pulse Resp BP Pulse Ox 10/06/20 01:12 83 12 90/67 94 L 10/06/20 00:50 93 14 87/40 L 93 L 10/05/20 23:37 87 20 119/76 98 10/05/20 23:02 97 F 101 H 20 138/70 98 10/05/20 23:00 97 20 164/101 H 97 - My Orders Last 24 Hours: My Active Orders 10/06/20 00:51 Sodium Chloride 0.9% [Normal Saline] 1,000 ml IV .Bolus - Assessment/Plan Last 24 Hours: My Active Orders 10/06/20 00:51 Sodium Chloride 0.9% [Normal Saline] 1,000 ml IV .Bolus Plan: Is a 50-year-old female presents today for isolation following hitting her head. Patient thinks that she may have a seizure at home emesis patient was in a blank stare without shaking. Here patient has some shaking of the left arm but was talking and making statements so unclear patient having seizures. Will obtain CT head labs alcohol level and reassess.
[2020-10-05 23:36] LABS: BLOOD UREA NITROGEN,BUN 10 mg/dL (7.0-18.0); CARBON DIOXIDE,CO2 25.3 mmol/L (21.0-32.0); CHLORIDE,CL 106 mmol/L (98-107); GLUCOSE RANDOM 86 mg/dL (74-106); LIPASE 139 U/L (73-393); POTASSIUM,K 3.9 mmol/L (3.5-5.1); SODIUM,NA 142 mmol/L (136-145)
--- NOTE | 2020-10-06 00:01 | CT ---
DATE: 10/05/2020. CLINICAL HISTORY: Patient fell and struck head. TECHNIQUE: Standard helical CT image acquisition of the brain was performed. COMPARISON: Head CT dated 11/23/2018. FINDINGS: There is no intracranial hemorrhage. No extra-axial collection, mass effect, or midline shift. Nielsen-white matter differentiation is preserved. Ventricles are normal in size and morphology for patient age. The calvarium is unremarkable. The orbits are unremarkable. The paranasal sinuses are unremarkable. The mastoid air cells are unremarkable. The soft tissues are unremarkable. IMPRESSION: No CT evidence of acute intracranial abnormality or closed-head injury. Please note that all CT scans at this facility use dose modulation, iterative reconstruction, and/or weight-based dosing when appropriate to reduce radiation dose to as low as reasonably achievable. Dictated by Finn Grant MD @ 10/05/2020 11:59:[address] Finn Grant @ Oct 05 2020 11:59PM
--- NOTE | 2020-10-06 00:13 | CT ---
INDICATION: Fall with head trauma TECHNIQUE: CT cervical spine without contrast. COMPARISON: None FINDINGS: Vertebral alignment: Alignment is normal. Vertebrae: There are no fractures or suspicious bony lesions. Discs and facet joints: There are moderate multilevel degenerative disc and facet changes. Extraspinal findings: Paraspinous soft tissues are unremarkable. IMPRESSION: 1. No sign of acute injury. 2. Multilevel degenerative spondylosis. Please note that all CT scans at this facility use dose modulation, iterative reconstruction, and/or weight-based dosing when appropriate to reduce radiation dose to as low as reasonably achievable. Dictated by Mari Larson MD @ 10/06/2020 12:12:[address] Mari Larson @ Oct 06 2020 12:12AM
[2020-10-06] MEDS ORDERED: Sodium Chloride 0.9% 1,000 ML IV ONE (00:51)
== END 2020-10-06 01:39 | disposition home or self-care (01) ==
LOC: MW.ED 22:53
DX: F10.129 Alcohol abuse with intoxication, unspecified (principal); S00.03XA Contusion of scalp, initial encounter; E03.9 Hypothyroidism, unspecified; Z88.5 Allergy status to narcotic agent; Z86.16 Personal history of COVID-19; Z79.899 Other long term (current) drug therapy; Y90.8 Blood alcohol level of 240 mg/100 ml or more; W18.39XA Other fall on same level, initial encounter
CPT/HCPCS: 36415; 70450; 72125; 80053; 80307; 82550; 83690; 83735; 84100; 85025; 96374; 99284; J2060; J7030; 99283